=== PATIENT | male | born 1995 | race Caucasian/White ===

== ENCOUNTER 2024-02-24 12:35 | Emergency (ER) | payer OTHER, SELFPAY ==
[2024-02-24 12:36] VITALS: BP 136/84; PULSE 87; RESP 16; TEMP 36.8; O2SAT 100; BMI 24.1
[2024-02-24 13:51] LABS: Bacteria 0 SEEN /hpf (None Seen); Mucous, Urine 0 SEEN /hpf (<or=2+); Red Blood Cells-Urine 0 SEEN /hpf (0-5); Squamous Epithelial Cells - UA 0 SEEN /hpf (0-5); White Blood Cells 0 SEEN /hpf (0-5)
[2024-02-24 13:53] LABS: Color, Urine Straw (Yellow); Glucose, Dipstick Normal (Normal); Ketone-Dipstick Negative (Negative); Leukocyte Esterase-Dipstick Negative /ul (Negative); Nitrite-Dipstick Negative (Negative); Occult Blood-Urine Negative /ul (Negative); Protein-Dipstick Negative (Negative); Specific Gravity, Urine 1.005 (1.002-1.030); Urine Bilirubin Dipstick Negative (Negative); Urine Clarity Clear (Clear); Urine Urobilinogen Normal (Normal)
--- NOTE | 2024-02-24 15:11 | CT_ITS ---
STUDY: CT ABDOMEN AND PELVIS WITH CONTRAST REASON FOR EXAM: Male, 28 years old. R-groin pain and redness RADIATION DOSAGE (If Supplied By Facility): CTDIvol = ( 9.45 ) mGy, DLP = ( 448.98 ) mGycm TECHNIQUE: Transaxial images were obtained from the dome of the diaphragm to the symphysis pubis without oral contrast. IV 100mL Isovue-370 was administered. Sagittal and coronal images were reconstructed. Individualized dose optimization techniques were used for this CT. COMPARISON: None. FINDINGS: The visualized lung bases are unremarkable. The visualized portions of the heart are within normal limits. Normal liver. Normal gallbladder and extrahepatic biliary system. Normal spleen. Normal pancreas. Normal bilateral adrenal glands. Horseshoe kidney. No hydronephrosis. No stones. Normal visualized stomach. Normal small intestine. Normal colon. The appendix is visualized and appears normal. Normal abdominal aorta. Normal inferior vena cava. Normal retroperitoneum. Empty urinary bladder. There is a right groin adenopathy with lymph nodes measuring as much as 2.2 cm carotid by mild induration. Findings are consistent with inflammatory adenopathy. No focal fluid collection or abscess. Otherwise negative abdominal wall. Normal osseous structures. CT/Abdomen/Pelvis W IV Cont ONLY IMPRESSION: Right groin adenopathy. No definite abscess. No other definite acute or significant abnormality seen. Electronically Signed: Mateo Hurt MD at 17:34 EDT ,
--- NOTE | 2024-02-24 15:12 | EX.ED.GUMALE ---
HPI History of Present Illness Chief Complaint: Male Pain/Injury Informant: patient Pain Onset: Days Context: Gradual Onset Timing: Continuous Current Severity: Mild Maximum Severity: Mild Narrative Narrative: Healthy 28-year-old male no seen past medical history. No prior abdominal surgery. He had right groin pain for almost a week. Denies any fall injury or trauma. He was seen by his primary care physician at that time is felt to be possibly muscle strain. he was treated with a muscle relaxant without much relief. The last several days he developed a fever and redness. Was seen by his primary care's office who sent him in the ER for further evaluation. He has had some diarrhea the last 4 days. Denies any dysuria. No weight loss. Prior similar symptoms: No Recent Illness/Hospitalization: No PFSH PFSH Medical History History of back pain Home Medications ?Medication ?Instructions ?Recorded ?Last Taken ?Type multivitamin 1 tab PO DAILY 07/10/23 Unknown History clindamycin HCl 300 mg capsule 300 mg PO Q6H #40 CAPSULES 02/24/24 Unknown Rx (Cleocin HCl) Allergy/AdvReac Type Severity Reaction Status Date / Time cephalexin (From Keflex) Allergy Rash Verified 02/24/24 12:39 erythromycin base Allergy Rash Verified 02/24/24 12:39 Penicillins Allergy Rash Verified 02/24/24 12:39 Surgical History No pertinent past surgical history Social History Smoking Status: Never smoker alcohol intake: never substance use type: does not use ROS ROS ED ROS Narrative Fever. Right groin pain. Constitutional Constitutional ED: Reports fever(s) Eyes Eyes: Denies blurry vision ENT ENT ED: Denies ear pain Cardiovascular Cardiovascular: Denies chest pain Respiratory/Chest Respiratory/Chest: Denies cough Gastrointestinal Gastrointestinal: Reports diarrhea and other Details: Right groin pain. ; Denies abdominal pain, constipation, melena, nausea or vomiting Genitourinary Genitourinary ED: Denies dysuria or hematuria Musculoskeletal Musculoskeletal: Denies arthralgias Integumentary Denies abscess Neurologic Neurologic: Denies headache(s) Psychiatric Psychiatric: Denies anxiety Endocrine Endocrinology: Denies polydipsia Hematologic/Lymphatic Hematologic/Lymphatic: Denies easy bleeding Allergic/Immunologic Allergic/Immunologic ED: Denies mouth swelling EXAM Physical Exam Narrative Exam Narrative: Well-appearing 28-year-old male. Vital signs stable afebrile. No acute distress. H EENT exam unremarkable. Moist extremities. Neck nontender no lymphadenopathy. Lungs clear to auscultation bilaterally. Heart regular rhythm rate about 85 no murmur. Chest wall ribs nontender. Moving all 4 extremities. Neurovascular intact. No axillary lymphadenopathy. Right groin is an area of redness about 2 inches wide by about 3 to 4 inches in length. Skipped a few palpable and tender lymph nodes there. This may be lymphadenopathy or superficial cellulitis. I do not see an obvious abscess. Dental exam is unremarkable and nontender. There is no hernia or mass. He has no testicular tenderness. Moving all 4 extremities. Normal range of motion. No septic joint. Full flexion extension of his right hip and knee. Normal strength. Back nontender. He is awake and alert. No focal motor deficits. Const Vital Signs: 02/24/24 12:36 Temperature 98.2 F Temperature Source Temporal Pulse Rate 87 Respiratory Rate 16 Blood Pressure 136/84 H Blood Pressure Mean 101 Pulse Ox 100 Oxygen Delivery Method Room Air Positive well nourished and well developed; Negative for obese, cachectic, contractures or unkempt General Appearance ED: well developed and NAD; Negative for unkempt, cachectic, contractures or pallor Nutritional Appearance: Negative for cachectic or obese HEENT Reports moist mucous membranes; Denies dry mucous membranes normocephalic and atraumatic; Negative for trauma or tenderness Mouth ED: No dry mucous membranes Mouth: No dry mucous membranes Eyes PERRL and EOMs intact bilaterally General Eye ED: Negative for pale conjunctiva or scleral icterus Neck no lymphadenopathy, supple and no JVD General: Negative for tenderness Resp normal respiratory effort and clear to auscultation bilaterally Effort and Inspection: Negative for retractions Auscultation: Negative for rales, rhonchi, wheezes or diminished lung sounds Cardio regular rate, regular rhythm, S1 normal heart sound, S2 normal heart sound and no murmurs Rate: Negative for bradycardia or tachycardic Rhythm: Negative for abnormal rhythm Heart Sounds: Negative for other GI non-tender, non-distended and no masses GI Narrative: Right groin tenderness. Has an area on his right groin is about 2 inches wide with about 3 to 4 inches in length of redness consistent with superficial cellulitis with some lymphadenopathy. There is no obvious abscess. His external exam is nontender without hernia or mass. He has no abdominal tenderness or right lower quadrant is nontender. He has normal range of motion of his right hip. Palpation: soft; Negative for tender or guarding no CVA tenderness Back/Spine no CVA tenderness Cervical Spine: Negative for cervical spine tenderness Thoracic Spine / Upper Back: Negative for thoracic spinal tenderness Lumbar Spine / Lower Back: Negative for lumbar spinal tenderness Extremity normal to inspection General Extremety ED: Negative for edema, pulses abnormal or tenderness General Extremity: Negative for edema or pulses abnormal Neuro oriented x3, CN's II-XII intact bilaterally, moves all extremities and no focal motor deficits Sensorium / Orientation: alert, oriented to person and oriented to place; Negative for oriented to time, orientation impaired or confused Motor Exam: strength 5/5 throughout Psych mental status grossly normal Appearance: Negative for unkempt Attitude: No agitated Mood & Affect: Negative for depressed, anxious or tearful Thought Process: normal thought process Thought Content: normal thought content Attention / Concentration: Negative for other Skin Skin Narrative: Cellulitis right groin. General Skin Exam: Negative for jaundice or pallor Lesions: no lesions Rashes: No no rashes and No rashes noted Trauma: Negative for abrasion or laceration MDM MDM MDM Narrative Medical decision making narrative: 28-year-old male redness and discomfort right groin with swollen lymph nodes may be cellulitis with lymphadenopathy versus other etiologies. CAT scan being obtained screening labs. Clinically looks well. Most likely will be able to treat this as an outpatient. Repeat exam patient is doing well at 4:50 PM. No significant change. I discussed his lab test with him. We are awaiting the CAT scan read. He will be started on clindamycin. He has multiple antibiotic allergies. The rash in his right groin is no worse. Definitely looks like cellulitis. CAT scan showed right groin lymphadenopathy but no abscess or other acute abnormality. Patient doing well at 5:45 PM will be discharged home. Lab Data Attestation: I reviewed the patient's lab results. Lab results narrative: UA normal. No white or red cells. No bacteria. CBC normal white count 8. H&H 14 and 41. Platelets 309. Electrolytes show gap 5. Normal BUN and creatinine. Glucose 97. Labs: Laboratory Results - last 24 hr 02/24/24 02/24/24 13:15 15:20 WBC 8.0 RBC 4.74 Hgb 14.6 Hct 41.1 MCV 86.7 MCH 30.8 MCHC 35.5 RDW Std Deviation 36.6 RDW Coeff of [place] 11.4 L Plt Count 309 MPV 9.2 Immature Gran % (Auto) 0.300 Neut % (Auto) 64.9 Lymph % (Auto) 19.0 [place] % (Auto) 14.6 H Eos % (Auto) 0.9 Baso % (Auto) 0.3 Absolute Neuts (auto) 5.2 Absolute Lymphs (auto) 1.51 Nucleated RBC % 0 Sodium 136 Potassium 4.6 Chloride 102 Carbon Dioxide 29.0 Anion Gap 5 BUN 12 Creatinine 0.83 Estim Creat Clear Calc 139.86 Est GFR (MDRD) Af Amer 141 Est GFR (MDRD) Non-Af 117 BUN/Creatinine Ratio 14.5 Glucose 97 Calcium 9.0 Urine Color Straw Urine Clarity Clear Urine pH 7.0 Ur Specific [place] 1.005 Urine Protein Negative Urine Glucose (UA) Normal Urine Ketones Negative Urine Occult Blood Negative Urine Nitrite Negative Urine Bilirubin Negative Urine Urobilinogen Normal Ur Leukocyte Esterase Negative Urine RBC 0 SEEN Urine WBC 0 SEEN Ur Squamous Epith Cells 0 SEEN Urine Bacteria 0 SEEN Urine Mucus 0 SEEN Radiography Diagnostic Testing: Clinical Impression(s) from Imaging Studies Abdomen/Pelvis CT 02/24/24 15:11 IMPRESSION: Right groin adenopathy. No definite abscess. No other definite acute or significant abnormality seen. Electronically Signed: Mateo Hurt MD at 17:34 EDT , Discharge Plan Triage Chief Complaint: Male Pain/Injury Other Complaint: Back ED Provider: Pavel Castaneda Dx/Rx/DC Orders Clinical Impression: Cellulitis Instructions: ED Cellulitis Prescriptions: New clindamycin HCl [Cleocin HCl] 300 mg capsule 300 mg PO Q6H Qty: 40 0RF No Action multivitamin Tablet 1 tab PO DAILY Primary Care Provider: Allan Conrad Referrals: Allan Conrad MD [Primary Care Provider] - 1 Week if not improving NOT,DEFINED [Non-Staff] - Activity Restrictions/Additional Instructions: This is a soft tissue infection of the skin called cellulitis. He will be started on antibiotic clindamycin 4 times a day for 10 days. It should take care of it. Take it with food on your stomach. Follow-up with your doctor if not improving return if you are feeling a lot worse. Print Language: Latvian Disposition Disposition: Home, Self Care
[2024-02-24 15:40] LABS: Absolute Lymphocyte Count 1.51 X10^3/uL (0.83-4.51); Absolute Neutrophil Count 5.2 X10^3/uL (2.0-7.7); Basophil# 0.02 X10^3/uL; Basophil% 0.3 % (0-1); Eosinophil# 0.07 X10^3/uL; Eosinophils% 0.9 % (0-5); Hematocrit 41.1 % (40-54); Hemoglobin 14.6 g/dL (13.0-16.5); Lymphocyte # 1.51 X10^3/ul (0.83-4.51); Mean Corp Hgb Conc 35.5 g/dL (32-36); Mean Corpuscular Hgb 30.8 pg (27.0-32.0); Mean Corpuscular Volume 86.7 fL (80-94); Mean Platelet Vol. 9.2 fl (6.2-12.0); Monocyte# 1.16 X10^3/uL; Monocyte% 14.6 % (0-10); NRBC Flagged by Analyzer 0 % (0-5); Neutrophil # 5.17 X10^3/uL (2.7-7.7); Neutrophil % 64.9 % (47-70); Platelet Count 309 K/mm3 (150-450); RBC Distribution Width CV 11.4 % (11.6-14.6); RBC Distribution Width SD 36.6 fl (35.1-43.9); Red Blood Count 4.74 M/mm3 (4.6-6.2)
[2024-02-24 15:55] LABS: Anion Gap 5 (5-15); BUN 12 mg/dL (7-18); BUN/Creat Ratio 14.5 RATIO (10-20); Chloride 102 mmol/L (98-107); Creatinine, Serum 0.83 mg/dL (0.70-1.30); EST Glomerular Filtration Rate 117 mL/min (>60); Est Glom Filt Rate - Afr Amer 141 mL/min (>60); Estimated Creatinine Clearance 139.86 ml/min; Glucose 97 mg/dL (74-106); Potassium 4.6 mmol/L (3.5-5.1); Sodium Level 136 mmol/L (136-145)
[2024-02-24] MEDS: Clindamycin HCl 150 MG Capsule 300 MG PO (17:22)
== END 2024-02-24 17:53 | disposition home or self-care (01) ==
PROVIDERS: Emergency Provider Emergency Medicine; PCP Family Medicine; Visit Provider Emergency Medicine
DX: L03.314 Cellulitis of groin (principal); R10.31 Right lower quadrant pain; R19.7 Diarrhea, unspecified; R59.0 Localized enlarged lymph nodes
CPT/HCPCS: 74177; 80048; 81001; 85025; 99283; Q9967; A4216